=== PATIENT | female | born 1945 | race Caucasian/White ===

== ENCOUNTER → 2020-04-11 16:53 | Outpatient (CLI) | payer MEDICARE, SELFPAY | PROVIDERS: Visit Provider Specialist | DX: Z87.440 Personal history of urinary (tract) infections (principal); N95.2 Postmenopausal atrophic vaginitis; N20.0 Calculus of kidney | CPT/HCPCS: 87086; 99214 ==

== ENCOUNTER → 2020-05-17 10:58 | Outpatient (CLI) | payer MEDICARE, SELFPAY ==
[2020-05-17] MEDS: COVID-19 VACC #1, MRNA(MOD) 100 MCG/0.5 ML VIAL IM (11:07)
== END ==
PROVIDERS: Visit Provider Internal Medicine
DX: Z23 Encounter for immunization (principal)
CPT/HCPCS: 0011A; 91301

== ENCOUNTER → 2020-06-14 12:50 | Outpatient (CLI) | payer MEDICARE, SELFPAY ==
[2020-06-14] MEDS: COVID-19 VACC #2, MRNA(MOD) 100 MCG/0.5 ML VIAL IM (13:03)
== END ==
PROVIDERS: Visit Provider Internal Medicine
DX: Z23 Encounter for immunization (principal)
CPT/HCPCS: 0012A; 91301

== ENCOUNTER → 2020-12-03 11:34 | Outpatient (CLI) | payer MEDICARE, SELFPAY ==
--- NOTE | 2020-12-03 11:36 | DI.MRI.S_ITS ---
PROCEDURE: MR HIP RT WO CON INDICATIONS: PAIN IN RT HIP TECHNIQUE: Noncontrast coronal T1 spin echo and STIR through the bony pelvis. Coronal and axial T2 fast spin echo with fat saturation, sagittal T1 spin echo, and oblique axial T2 fast spin echo with fat saturation through the hip. COMPARISON: None. FINDINGS: BONES AND JOINTS: Osseous structures: No fracture identified. Sacroiliac joints: Unremarkable in signal intensity. Lower lumbar spine: Diffuse spondylosis and facet arthropathy. Joint effusion: None. Other: There are extensive geographic in curvilinear signal changes involving the right femoral head suggestive of osteonecrosis/avascular necrosis. There is borderline articular surface deformity/early collapse. TENDONS AND LIGAMENTS: Gluteus medius and minimus tendons: Intact. No muscle atrophy. Proximal iliotibial band: Intact. Iliopsoas tendon: Intact. Origin of the hamstring tendon: Mildly thickened and intrasubstance T2 hyperintensity, technically age indeterminate finding. Rectus femoris muscle origins: Intact Ligamentum teres: Intrasubstance signal changes although thought to be intact. LABRUM: Labrum: Anterosuperior labral tear with full-thickness T2/fluid signal intensity traversing the base of the labrum. There is adjacent degenerative changes seen in the acetabulum and partial thickness chondral loss. Alpha angle of the femur: Abnormal, measuring approximately 58? SOFT TISSUES: Visualized muscles: Normal bulk and internal signal. Quadratus femoris muscle: Normal. Proximal sciatic neurovascular bundle: Normal adjacent to the hamstring tendons. Other: No pelvic free fluid. Bladder: Normal. Genitourinary structures and bowel loops: Normal where visualized. IMPRESSION: Right femoral head osteonecrosis/AVN. Borderline articular surface deformity suggestive of early collapse. Continued serial radiographic surveillance recommended. Chronic anterosuperior labral tear. Increased alpha angle of the femur as above, which raises the possibility of femoral acetabular impingement syndrome although only in the appropriate clinical setting. Age-indeterminate hamstring origin tendinopathy, mild. Dictated by: Presley Ramos M.D. on 12/05/2020 at 8:51 Approved by: Presley Ramos M.D. on 12/05/2020 at 9:01
== END ==
PROVIDERS: Referring Provider Orthopaedic Surgery; Visit Provider Orthopaedic Surgery
DX: M25.551 Pain in right hip (principal); M87.851 Other osteonecrosis, right femur; S73.191A Other sprain of right hip, initial encounter
CPT/HCPCS: 73721

== ENCOUNTER → 2020-12-21 12:07 | Outpatient (CLI) | payer MEDICARE, SELFPAY ==
[2020-12-21 13:04] LABS: Add Manual Diff / Slide Review NO; Basophils Absolute Auto 0 /uL (0-100); Basophils Percent Auto 0.6 % (0-2); Eosinophils Absolute Auto 200 /uL (0-450); Eosinophils Percent Auto 2.9 % (2-4); Hemoglobin 13.7 g/dL (12.0-16.0); Lymphocytes Absolute Auto 1900 /uL (1100-4500); Lymphocytes Percent Auto 32.8 % (25-40); Mean Corpuscular HGB Conc 33.4 % (30-36); Mean Corpuscular Hemoglobin 33.1 PG (26-34); Mean Corpuscular Volume 99.3 fL (80-100); Monocytes Absolute Auto 200 /uL (0-900); Monocytes Percent Auto 4.1 % (3-14); Neutrophils Absolute Auto 3400 /uL (1500-7000); Neutrophils Percent Auto 59.6 % (50-75); Platelet Count 220 X10^3/uL (150-400); Red Blood Cell Count 4.13 X10^6/uL (4.0-5.2); Red Cell Distribution Width 13.8 % (11.6-14.8); White Blood Cell Count 5.8 X10^3/uL (4.5-11.0)
[2020-12-21 13:11] LABS: INR 1.3 (0.9-1.3); Prothrombin Time 14.4 SECONDS (10.1-12.7)
[2020-12-21 13:14] LABS: PTT Partial Thromboplastin Tim 34 SECONDS (26.4-36.2)
[2020-12-21 13:23] LABS: Hemoglobin A1C% w Est Avg Glu 4.9 % (4.0-6.0)
[2020-12-21 13:26] LABS: BUN Creatinine Ratio 32.8 (6-22); Blood Urea Nitrogen 21 mg/dL (7-17); Calcium 9.5 mg/dL (8.4-10.2); Carbon Dioxide 27 mmol/L (22-32); Chloride 105 mmol/L (98-107); Estimated Glomerular Filt Rate > 60.0 mL/min (>60); Glucose 109 mg/dL (80-110); HEMOLYSIS < 15 (0-50); Potassium 4.3 mmol/L (3.4-5.1); Sodium 138 mmol/L (137-145)
== END ==
PROVIDERS: Referring Provider Orthopaedic Surgery; Visit Provider Orthopaedic Surgery
DX: Z01.818 Encounter for other preprocedural examination; Z51.81 Encounter for therapeutic drug level monitoring; R73.9 Hyperglycemia, unspecified; Z01.812 Encounter for preprocedural laboratory examination; N39.0 Urinary tract infection, site not specified
CPT/HCPCS: 36415; 80048; 83036; 85025; 85610; 85730; 93005

== ENCOUNTER 2021-01-03 10:26 | Day surgery (SDC) | payer MEDICARE, SELFPAY ==
[2020-12-29 10:33] VITALS: BMI 21.9
[2021-01-03] VITALS (11 sets, daily range): BP systolic 96–126; BP diastolic 47–78; PULSE 67–79; RESP 13–17; TEMP 35.6–36.7; O2SAT 93–99; BMI 21.9
--- NOTE | 2021-01-03 06:33 | DI.RAD.S_ITS ---
PROCEDURE: XR HIP W PEL IF DONE RT 2V INDICATIONS: inner op TECHNIQUE: AP pelvis and lateral view of the 2 hip acquired. COMPARISON: [facility], CR, XR HIP W PEL IF DONE RT 2V, 01/03/2021, 16:27. FINDINGS: Single operative images demonstrating right hip arthroplasty which is appears in expected position. IMPRESSION: Intraoperative images during placement of right hip arthroplasty demonstrating expected positioning of the prosthetic components peers Dictated by: Abhinav Lopez RRA Interpreted: Mirna Mckinney MD on 01/03/2021 at 16:58 Transcribed by: ANDREWS on 01/03/2021 at 16:59 Approved by: Mirna Mckinney M.D. on 01/03/2021 at 20:02
[2021-01-03 11:23] LABS: COVID19 -Nasal RAPID Negative (Negative)
[2021-01-03] MEDS: VANCOMYCIN 1,000 MG/200 ML PIGGYBACK 200 MG IV (11:45)
[2021-01-03] MEDS: LACTATED RINGERS 1,000 ML 42 ML IV ×2 (11:45→15:40)
--- NOTE | 2021-01-03 11:55 | P.OP_ITS ---
Operative Date/Time/Diagnoses Date of procedure: 01/03/21 Time of procedure: 12:30 Pre-op diagnosis: Right hip osteoarthritis Post-op diagnosis: same Procedure & Clinicians Procedure: Right total hip arthroplasty anterior approach Same procedure as scheduled: Yes Indications: The patient has had progressively worsening right hip pain with radiographic changes consistent with arthritis. Non-operative management has failed and the patient has requested total hip replacement. The risks, benefits and alternatives to surgery were discussed with the patient prior to proceeding. Risks discussed included, but were not limited to, failure to relieve pain, leg length discrepancy, dislocation, stiffness, infection, nerve damage, deep venous thrombosis, pulmonary embolism, stroke, coma, heart attack, permanent paralysis and , as well as the potential need for eventual revision of the prosthetic. Surgeon: Mandie Meier Spinning Machine Operator: Uriel Angel Anesthesia Type: General and Spinal Operative Notes Findings: Severe right hip avascular necrosis, adequate bone, adequate stability Closure Type: primary Specimen(s): none sent Prosthetic devices, grafts, tissues, transplants, or devices: Meier and nephew size 6 standard offset anthology, 48 mm cup R3, neutral poly liner,0 Oxinium head,two 6.5 mm screw Estimated Blood Loss (mL): 250 Blood products transfused: none Procedure in detail: The patient was brought to the operating room. Patient was carefully positioned in the supine position. Time-out was performed and antibiotics were given. Anesthesia was induced. She was positioned in the on the table in order to allow hyperextension of the hip. The right lower extremity was prepped and draped in a standard sterile fashion. An anterior right hip incision was made 1 fingerbreadth lateral to the anterior superior iliac spine and extended distally towards the greater trochanter. Dissection was carried out through skin and subcutaneous tissues. Superficial hemostasis was achieved. The fascia over the tensor fascia nancy was defined and incised with a knife. Two Allis clamps were used to grasp the fascia. Tensor fascia nancy was retracted laterally. A gelpi retractor was placed. Dissection was carried out down along the neck. The circumflex vessels were carefully identified and cauterized with the Aqua Mantis. There was good visualization of the femoral neck. A Cobra was placed superior to the neck and the gluteus fibers were carefully stripped from that superior aspect of the capsule. A 2nd retractor was placed along the inferior aspect of the neck. The rectus insertion along the capsule was partially released. A 3rd retractor that was then gently placed over the rim of the acetabulum under the rectus. Capsule was carefully incised and released from the intertrochanteric line circumferentially superior to the mid sagittal line and inferiorly to the mid sagittal line until the lesser trochanter was palpable. A tag stitch was placed both in the superior and inferior limb of the capsular insertion. Along the acetabulum capsule was also released up to the mid sagittal 12:00 position. A portion of the labrum was resected. A saw was used to perform an osteotomy at the level of the intertrochanteric line and the junction of the superior femoral neck leaving approximately 1 finger breath of residual inferior neck above the lesser trochanter. A 2nd cut was made along the femoral neck at the base of the head and a napkin ring of neck was removed. Corkscrew was placed in the femoral head and the head was removed without difficulty. Retractors were then repositioned around the acetabulum. Residual labrum was resected and additional osteophytes were removed. A reamer that was 4 mm below the templated size was placed by hand in the acetabulum and it was reamed to centralize the acetabulum. It was then reamed up to 2 under the templated size and fluoroscopy was brought in to confirm the position of the reaming and depth of reaming. I reamed 1 under the anticipated size. A trial cup was placed and noted that it was appropriately sized and fluoroscopy confirmed position and depth. The component was open and inserted without difficulty fluoroscopic imaging was used to confirm that the cup had been adequately seated and was well positioned. It was further stabilized with a two screws. Neutral poly liner was placed. The cup was tested and noted to be stable. Attention was then directed to the femur. The femur was gently hyperextended additional capsular release was performed as needed in order to allow adequate visualization of the proximal femur with elevation of the femur. Patient was placed in a hyperextended slightly adducted position with maximum external rotation. Box osteotome was used to check for any residual neck as well as sclerotic bone along the trochanter. Gallaway pepper was placed in the femur. Additional broaching was performed. Canal finder was used to determine the alignment of the canal and position. Size 1 broach was placed. The canal was then appropriately broached up to the templated size as long as there was adequate stability of the broach and serial advancement of the broach without excessive impingement. Specific attention was directed at avoiding varus attempting to direct the distal aspect of the broach more anteriorly and avoiding excessive anteversion. Trial reduction showed acceptable range of motio n, good stability, no posterior impingement, pentecostal of leg length and appropriate lateral shuck. I also hyperflexed the hip and checked that there was no impingement anteriorly and there was good stability with flexion, adduction and internal rotation. Marcaine and Exparel were injected. The stem was placed without difficulty. Repeat trial reduction and x-ray showed acceptable overall position, length, and no evidence of the femoral fracture. Final head was placed. Wound was meticulously irrigated with normal saline. The hip was reduced and additional Exparel and Marcaine were injected. The capsule was closed with interrupted nonabsorbable sutures. The fascia of the tensor was closed with interrupted and running Vicryl. No drain was placed. Any tensor fascia nancy muscle that appeared to be contused or injured which was a minimal amount was carefully resected. Capsule around the tensor was injected with Exparel and Marcaine. The skin was closed with barbed stitches for the peoples bcutaneous tissue and skin. We also used surgical glue. The wound was dressed sterilely. Brief Betadine soak was also used and was meticulously irrigated with normal saline. Patient was transferred to recovery room in satisfactory condition. Complications: none Post-operative Condition: stable Disposition: Acute Care Plan for aftercare: The patient will be maintained on a standard total hip replacement protocol with weight bearing as tolerated and anterior hip precautions. The patient will receive Aspirin and sequential compression devices for DVT prophylaxis. The patient will be discharged home when safe for the home environment.
--- NOTE | 2021-01-03 11:55 | PM.PREOP ---
Pre-operative Note COVID-19 COVID-19 status: Negative Interval Note History & Physical reviewed/Exam performed by Physician: Yes Changes to H&P: No
[2021-01-03] MEDS: CEFAZOLIN 1 GM VIAL IV (13:08)
[2021-01-03] MEDS: TRANEXAMIC ACID 1,000 MG VIAL 1000 MG INJ ×2 (13:08→15:26)
--- NOTE | 2021-01-03 13:15 | DI.RAD.S_ITS ---
PROCEDURE: XR HIP W PEL IF DONE RT 2V INDICATIONS: RT ANT TOTAL HIT TECHNIQUE: AP pelvis and lateral view of the right hip acquired. COMPARISON: [facility], CR, XR HIP W PEL IF DONE RT 2V, 01/03/2021, 14:26. FINDINGS: Bones: Patient is status post right hip arthroplasty, with hardware components in expected positions. The hip joint appears congruent. The visualized bony structures appear intact. Soft tissues: Overlying postoperative changes are noted. No suspicious soft tissue densities. IMPRESSION: Expected immediate postoperative appearance of right hip arthroplasty. Dictated by: Abhinav Lopez [facility] Interpreted: Mirna Mckinney MD on 01/03/2021 at 16:59 Transcribed by: ANDREWS on 01/03/2021 at 17:00 Approved by: Mirna Mckinney M.D. on 01/03/2021 at 20:02
--- NOTE | 2021-01-03 13:47 | SUR.OPER ---
Supine on padded Geyser table with bilateral legs secured in padded positioning boots and suspended in positioning spars, operative leg in traction per surgeon. Head on one pillow. Arm on non-operative side secured on padded armboard <90 degrees abduction. Arm on operative side padded and resting across chest then secured with tape over sheet. Padded perineal post in place per surgeon.
[2021-01-03] MEDS: BUPIVACAINE 0.25% (PF) VIAL 30 ML INJ (14:06)
[2021-01-03] MEDS: BUPIVACAINE LIPOSOME 266 MG/20 ML VIAL INJ (14:07)
[2021-01-03] MEDS: EPINEPHrine 1 MG/ML SUBCUT (14:08)
[2021-01-03] MEDS: ACETAMINOPHEN IV 1,000 MG/100 ML VIAL 400 MG IV (15:55)
--- NOTE | 2021-01-03 17:04 | SUR.PHASEI ---
Normal PACU stay, transferred to room with belongings and left unit in stable condition. Sancho assumed care, bed down, low and locked. Call phan with pt.
[2021-01-03] MEDS: NAPROXEN SODIUM 220 MG 1 EACH PO (17:30)
[2021-01-03] MEDS: LACTATED RINGERS 1,000 ML 125 ML IV (17:44)
[2021-01-03] MEDS: polyethylene glycoL 3350 17 GM POWD.PACK PO (18:54)
--- NOTE | 2021-01-03 20:46 | PC.NURSE ---
Addendum entered by Betzy Loya R.N. 01/03/21 22:17: late note: pt also refused her dinner. pt reports she has been on liquid diet at home Addendum entered by Betzy Loya R.N. 01/03/21 22:02: [place] [facility] refused to have two people helping her. pt thinks she can do it on her own. pt has not been evaluated by PT yet. pt doesn't like the gait belt, so I placed it around her very loosely, but still insist it is too tight. Original Note: pt [place] [facility] and refused to use a walker. pt voided. pt hesitant to take hospital medications. pt refused naproxen and wanted to take OTC aleve, ok per provider. 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
[2021-01-03] MEDS: DOCUSATE 100 MG CAPSULE PO (21:32)
[2021-01-03] MEDS: ASPIRIN EC 81 MG TABLET PO (21:32)
[2021-01-03] MEDS: CLINDAMYCIN 900 MG/50 ML PIGGYBACK 50 MG IV (21:37)
[2021-01-04] MEDS: NAPROXEN SODIUM 220 MG 1 EACH PO ×2 (01:24→08:51)
--- NOTE | 2021-01-04 03:14 | PC.NURSE ---
Addendum entered by Luh Christianson R.N. 01/04/21 06:27: Patient refused blood draw this morning. This RN explained why the blood was needed, however, the patient stated she would like to speak with Dr. Meier about it and does not feel that it is necessary. Will notify oncoming RN. Original Note: Patient refused next bag of LR to be hung when this RN went to hang it at 0240. Patient agreed to increase intake and has voided multiple times this shift. Patients IV was DC'd at 0245. Will monitor output throughout shift.
[2021-01-04 05:12] VITALS: BP 134/69; PULSE 72; RESP 18; TEMP 36.2; O2SAT 96
--- NOTE | 2021-01-04 07:29 | PM.DS.1 ---
History of Present Illness History of Present Illness Date Patient Seen: 01/04/21 Time Patient Seen: 07:29 Chief complaint: Right Total Hip Arthroplasty/Anterior *OPB* Narrative: The patient is complaining of mild right hip pain this morning, which is well controlled with her current pain regimen. She is only using Aleve as she is unable to tolerate any other pain medications. She also refused her blood draw this morning. She was scheduled for an H&H, she is asymptomatic with sitting or standing-no dizziness or lightheadedness. She denies numbness or tingling, fevers/chills/night sweats, nausea or vomiting. She is working with physical therapy. She refused to use her walker during physical therapy. Overall she is feeling well, and would like to go home today. Discharge Providers Provider Discharge Date: 01/04/21 Primary care physician: Doctor Ori MD Consults: 01/03/21 06:33 Consult to Anesthesiology Routine Comment: Consulting Provider: Anesthesiologist Reason for consultation: Regional block for post operative pain control 01/03/21 16:48 Consult to Discharge Planning Routine Comment: Consult to Physical Therapy Evaluate & Treat Comment: Physician Instructions: post op FRANCINE protocol Consult to Respiratory Therapy Evaluate & Treat Comment: Physician Instructions: Evaluate and treat Discharge provider: Renita Loya PA-C Summary Hospital Course Discharge Diagnosis: Right hip osteoarthritis Hospital Course: Procedure: Right total hip arthroplasty anterior approach Same procedure as scheduled: Yes Indications: The patient has had progressively worsening right hip pain with radiographic changes consistent with arthritis. Non-operative management has failed and the patient has requested total hip replacement. The risks, benefits and alternatives to surgery were discussed with the patient prior to proceeding. Risks discussed included, but were not limited to, failure to relieve pain, leg length discrepancy, dislocation, stiffness, infection, nerve damage, deep venous thrombosis, pulmonary embolism, stroke, coma, heart attack, permanent paralysis and , as well as the potential need for eventual revision of the prosthetic. Surgeon: Mandie Meier Ic Designer Standard Cells: Uriel Angel Anesthesia Type: General and Spinal Operative Notes Findings: Severe right hip avascular necrosis, adequate bone, adequate stability Closure Type: primary Specimen(s): none sent Prosthetic devices, grafts, tissues, transplants, or devices: Meier and nephew size 6 standard offset anthology, 48 mm cup R3, neutral poly liner,0 Oxinium head,two 6.5 mm screw Estimated Blood Loss (mL): 250 Blood products transfused: none Status at Discharge Cognitive/behavioral status at discharge: oriented Functional status at discharge: uses cane/walker Overall status at discharge: patient is progressing back to baseline Exam Vital Signs (past 8 hours): - 01/03/21 23:35 01/04/21 05:12 Temperature 97.5 F L 97.2 F L Pulse Rate 79 72 Respiratory Rate 16 18 Blood Pressure 126/74 134/69 Pulse Oximetry 98 96 Oxygen Delivery Method Room Air Oxygen Flow Rate 0 Narrative Exam Narrative: 75-year-old female, resting comfortably in bed, no acute distress. Incision is clean, dry, intact. Bilateral lower extremities with normal motor functions. Sensation to is grossly intact to light touch in bilateral lower extremities. Both legs are warm and dry. Bilateral calves are soft, nontender to palpation. Objective Labs Labs: Laboratory Results - last 24 hr 01/02/21 10:20 SARS-CoV-2 (PCR) Negative PFSH Medical History Arthritis Asthma Chronic UTI Degenerative joint disease of knee Depression Depression Dermatitis Family history of breast cancer Fibromyalgia History of recurrent UTI (urinary tract infection) Inflammatory bowel disease Kidney stone Neuropathy Osteoarthritis Osteoporosis Postmenopausal atrophic vaginitis Right kidney stone Seasonal allergies Surgical History History of surgery Hx of bilateral cataract extraction Hx of cholecystectomy Hx of dilation and curettage Hx of tonsillectomy Previous back surgery Total knee replacement status Family History Father Cancer Mother Alzheimer's dementia Sister Hearing impairment Cancer Social History marital status: household members: none occupational status: previously employed Smoking Status: Former smoker Tobacco: How many years used: 14 alcohol intake: former caffeine: No Discharge Assessment & Plan Assessment and Plan Assessment: Stable status post right anterior total hip arthroplasty Plan of Treatment: -DC home today after cleared by PT -aspirin 81 mg b.i.d. x6 weeks for DVT prophylaxis -mobilize with PT, encourage use of front wheeled walker for safety -patient is refusing lab draws this morning for H&H. She is asymptomatic with sitting or standing, therefore okay to hold on labs Discharge Plan Discharge Plan Patient Disposition: Home Discharge orders & Medications Discharge Orders: Discharge (Order); Ordered 01/04/21 Ordered By: Renita Loya Prescriptions: New aspirin 81 mg Tablet,Delayed Release (Dr/Ec) 81 mg PO BID PRN (Reason: x6 weeks to prevent blood clots) Qty: 90 RF: 0 Continued Probiotic 3 billion cell capsule 3,000 mmu cells PO DAILY RF: 0 d-mannose Powder 500 ea PO RF: 0 Bacillus coagulans PO RF: 0 instaflex capsule 1 PO BID RF: 0 docusate sodium PO RF: 0 flaxseed oil 1,000 mg capsule 1,000 mg PO DAILY RF: 0 Osphena 60 mg tablet 60 mg PO DAILY Qty: 90 RF: 3 Follow up/Referrals: Doctor Rehman MD [Primary Care Provider] - Mandie Meier MD [Physician] - (10-14 days for postoperative visit) Diet/Activity/Treatments Diet: Diet as Tolerated and Regular Activity: -weightbearing as tolerated with front wheeled walker -maintain anterior hip precautions -continue with home exercises, as directed by Physical therapy Cold/Heat Therapy: -Use ice as needed for pain control, protect skin from direct contact with ice with folded pillow case Other treatments: -81 mg of aspirin twice daily x6 weeks to prevent blood clots Skin/Wound/Dressing Care Report to your healthcare provider any signs of infection, such as:: chills, fever, night sweats, unusual drainage and unusual redness Dressing: -keep incision covered with dressing. -call the office if dressing becomes wet, saturated, salt Visit Report/Discharge Packet Instructions: DI for Hip Replacement Stand Alone Forms: Surgery Discharge Discharge Data Primary Care Provider: Doctor Ori Attending Provider: Mandie Meier
[2021-01-04 08:26] VITALS: BP 163/68; PULSE 74; RESP 16; TEMP 36.3
[2021-01-04] MEDS: ASPIRIN EC 81 MG TABLET PO (08:51)
[2021-01-04] MEDS: DOCUSATE 100 MG CAPSULE PO (08:51)
--- NOTE | 2021-01-04 08:55 | PT.IIE ---
Current Diagnoses Bilateral primary osteoarthritis of hip (01/03/21) Idiopathic aseptic necrosis of right femur (01/03/21) Surgery Performed Operation Date: 01/03/21 12:15 Actual Procedures p Total Hip Arthroplasty/Anterior Approach(Right) - Mandie Meier MD Medical History (Last Reviewed 01/04/21 @ 07:32 by Renita Loya PA-C) Arthritis Asthma Chronic UTI Degenerative joint disease of knee Depression Depression Dermatitis Family history of breast cancer Fibromyalgia History of recurrent UTI (urinary tract infection) Inflammatory bowel disease Kidney stone Neuropathy Osteoarthritis Osteoporosis Postmenopausal atrophic vaginitis Right kidney stone Seasonal allergies Physical Therapy Inpatient Evaluation/Re-Eval M1 PT/OT-IP Prior Functional Status Start: 01/04/21 10:10 Freq: NEEDED Status: Active Protocol: Document 01/04/21 08:55 AB (Rec: 01/04/21 10:24 AB [email or web address]) Medical Review Prior Functional Status Medical History Reviewed Yes Communication able to make needs known Mobility and Gait pt stated that she is independent with all mobilities and ambulation without AD Social History Household Members none Living Arrangements House Number of Floors (Floors) One Floor Number of Stairs To Enter/Railing? 1 step to enter Home Environment High Toilet,Walk in Shower Home Equipment Four Wheel Walker,Shower Seat with Backrest,Grab Bars In Shower M2 PT-IP Current Condition Start: 01/04/21 10:10 Freq: NEEDED Status: Active Protocol: Document 01/04/21 08:55 AB (Rec: 01/04/21 10:24 AB [email or web address]) Physical Therapy Current Condition Current Condition Evaluation Date 01/04/21 Treatment Diagnosis s/p R FRANCINE anterior approach; difficulty in walking Onset Date 01/03/21 Precautions Anterior Hip Precautions No Hip Extension,No Hip External Rotation Weight Bearing Status Weight Bearing Status Weight Bear as Tolerated Allowed Weight Bearing Amount (enter % RLE WBAT or #) (%) M3 PT-IP Subjective Start: 01/04/21 10:10 Freq: NEEDED Status: Active Protocol: Document 01/04/21 08:55 AB (Rec: 01/04/21 10:24 AB [email or web address]) Subjective Physical Therapy Visit Type Type Initial Evaluation Visit Start Time 08:55 Visit Stop Time 09:41 Total Visit Minutes 46 Number of LEARNING DISABILITIES SPECIALIST Visits 0 Physical Therapy Visit Comments Patient Comments pt is agreeable to do PT Therapy Pain Assessment Pain When Pain Assessed At Rest Pain Present Pain Present Pain Reported Location right hip Intensity 3 Scale Used Numeric (0 - 10) Pain Management Techniques Distraction,Modification of Treatment,Re-positioning, Timing of Activity with Medications M4 PT-IP Mobility and Gait Start: 01/04/21 10:10 Freq: NEEDED Status: Active Protocol: Document 01/04/21 08:55 AB (Rec: 01/04/21 10:24 AB [id number]) PT-Bed Mobility Assessment Supine to Sit Supine to Sit Independent Sit to Supine Sit to Supine Independent PT-Transfer Assessment Sit to and From Stand Sit to and from Stand Standby Assistance Equipment Transfer Assistive Device 4 Wheeled Walker Orthotic/Prosthetic Devices or Brace: No Transfers Transfer Destination Bed,Chair Transfer Technique Stand Step Pivot Transfer Ability Level of Assist Standby Assistance,Use of Upper Extremities Comments Mobility Comments educated pt on hip precautions . pt is able to recall. pt completed sit to stand from chair SBA and transferred to bed using 4WW SBA. educated on use of 4WW/brakes. pt refuse to use FWW. pt directs her own care. completed bed mobility sit<>supine mod I. ambulated in the hallway using 4WW sBA and occasional cues for hip precautions. pt initially refuses safety belt on but agreed after education. stair climbing training: pt stated that she holds on to the door know for support and does not want to use 4WW. completed up platform step holding on to sides of door SBA. 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 educated pt on safety and stated that her friend will be able to assist her but friend cannot come for training and will only pick her up. pt stated that she is going to have HHPT. pt ambualted back to the chair using 4WW SBA. call light and table placed within reach. informed NAC that pt needs assistance to get ready for d/ c home. Gait Assessment Gait Gait Assistance Required: Standby Assistance Distance (Feet) 75 Able to Maintain Weight Bearing Status Yes During Gait Assistive Devices Assistive Device 4 Wheeled Walker Orthotic/Prosthetic Devices or Brace: No Gait Deviations General Gait Pattern Antalgic,Decreased Stride Length,Decreased Feet Clearance,Step-to Gait Factors Limiting Gait Function Factors Limiting Gait Function Decreased Activity Tolerance, Decreased Strength,Limited Range of Motion,Pain,Poor Balance,Poor Safety Awareness Stair Climbing Assessment Evaluation Level of Assist On Stairs Standby Assistance,Contact Guard Assistance,1 Person Assistance Technique/Endurance Stair Climbing Direction Ascend and Descend Stair Climbing Technique Step to Step Number of Steps Climbed 1 Query Text: Stair Climbing Set # Repetitions (reps) 1 Comments Stair Climbing Comments pls refer to mobility section for details PT-Balance Assessment Sitting Balance and Reactions Static Sitting Balance Ability Normal Dynamic Sitting Balance Ability Good Standing Balance and Reactions Static Standing Balance Ability Fair Dynamic Standing Balance Ability Fair Device Used 4WW M5 PT-IP Objective Assessments Start: 01/04/21 10:10 Freq: NEEDED Status: Active Protocol: Document 01/04/21 08:55 AB (Rec: 01/04/21 10:24 [email or web address]) Orientation Orientation/Cognition Level of Alertness Alert Orientation Name,Age,Birthday,Month,Date, Year,Day of Week,Place, Situation Safety Awareness Decreased Safety Awareness Memory Description Short Term Impaired Gross Range of Motion Lower Extremity ROM Assessment Within Functional Limits Strength Lower Extremity Strength Assessment Right Impaired Hip 3+/5 Knee 4-/5 Coordination Assessment Gross Coordination Gross Coordination WNL Sensation Assessment Sensation Gross Sensation WNL Muscle Tone Muscle Tone WNL Yes M6 PT-IP Treatment Start: 01/04/21 10:10 Freq: NEEDED Status: Active Protocol: Document 01/04/21 08:55 AB (Rec: 01/04/21 10:24 [email or web address]) Physical Therapy Treatment Education Education Provided Precautions,Weight Bearing Status,Post-Op Packet,Safety M7 PT-IP Assessment and Plan Start: 01/04/21 10:10 Freq: NEEDED Status: Active Protocol: Document 01/04/21 08:55 AB (Rec: 01/04/21 10:24 [email or web address]) PT Summary Assessment and Plan Potential Rehabilitation Potential Good Status of Condition at Evaluation Stable Summary Impairments Pain,ROM,Strength,Balance, Coordination,Sensation,Tone, Cognition,Bed Mobility, Transfers,Gait,Activity Tolerance Assessment Summary pt requiring SBA with mobility using 4WW. pt lives alone and will have friends that can assist if needed but pt stated that she does not need assistance. pt also said that she is going to have HHPT. pt may go home when medically stable. Goals Bed Mobility Goal Independent Transfer Goal Independent,Four Wheeled Walker Gait Goal Independent,Four Wheel Walker Gait Distance 200 Other Goals up/down 1 step mod I Days to Meet Goals 3 Frequency of Treatment Frequency Of Treatment Twice a Day Treatment Plan Physical Therapy Treatment Plan Bed Mobility Training,Transfer Training,Gait Training, Therapeutic Exercise,Balance Retraining,Post Op Education, Discharge Planning,Hot or Cold Pack,Neuromuscular Re-ed, Coordination Retraining,Manual Therapy Precautions Anterior Hip Precautions No Hip Extension,No Hip External Rotation Other Precautions WBAT RLE Recommendations To Nursing Amount of Assist Needed Standby Assistance Discharge Recommendations PT Discharge Recommendations Home with Assistance,Home Health Transportation Needs at Discharge Private Vehicle
--- NOTE | 2021-01-04 10:11 | CM.DANOTE ---
Addendum entered by Arabella Salomon R.N. 01/04/21 12:22: Met with patient again. Asked patient about any home health services, if she felt she needed it. She indicated, maybe at some point, but I need to have the cleaning people come over and move somethings before I can consider someone coming to the house. She indicated, she uses [facility], and they had not shown up, and was going to contact them. Asked her about her , since face sheet indicates that she is . She stated, they are , he lives in [place], but they keep in contact. She has no children, but nieces and nephews. She is awaiting her friend picking her up after work, will be at approximately 1500. Original Note: DCP: Case received, EMR reviewed and met with patient. Introduced self and role. Was able to obtain information regarding patient's baseline activity status prior to surgery, as well as her current living home situation. DCP assessment completed with information currently available. Patient is a 75 year old female who admitted yesterday morning to the care of the orthopedic team. PCP: Dr. Diamond Payer: confirmed: Medicare/[employer]ARP. Patient came to the hospital via private vehicle for a surgical procedure. She had right total hip arthroplasty. Patient has history of osteoarthritis of her right hip, and she has had some chronic pain. Met with patient in her room. She is alert and oriented, pleasant. She resides in [place] alone. Patient does have a four wheel walker, but indicated, it's heavy to take places. She indicated, she uses furniture at home to hold on to. She indicated that she does drive. She mentioned that her friend, Sabi Munoz, will be assisting her when she goes home, and is picking her up. Her friend does work, however. Patient mentioned that she does not want to take narcotics for pain, just her anti-inflammatories. Patient indicated, she likes to take the holisic approach. She will be working with physical therapy today. She also stated that her home is small and open, not a lot of square footage, is easy to get around. P: Patient has discharge orders for home today. She will be working with Roel Salomon RN/Right Of Way Man
--- NOTE | 2021-01-04 14:14 | PT-IP ANOTE ---
~1345: Nurse informed PT that pt has a question regarding her 4WW. Went in to see pt. pt stated that her walker still moves even when she has the breaks on. informed pt that the 4WW will still move when she pushes it hard enough since it is a portable device and it is not bolted on the floor. stated that it does not do that before and this morning when she used it. checked pt's 4WW and seems like the wheels are worn out and informed pt. pt stated , why will it be worn out where in she just used it for 1 week after her knee surgery. I asked the pt how long ago did she get the walker and stated 10 years ago and was sitting in her garage. pt stated that is is an $800 walker and she cannot use it now and that she will just let her friend take it down to the car and she will throw it back to the garage. This PT asked the pt to walk with the 4WW and ambulated but pt kept pushing the walker forward with brakes on and stated that it does not work. asked the pt to sit down. I got our in house 4WW with the brakes working and showed pt that even if the brakes are working, if you push enough, the walker will still move. pt stated, not my walker before. informed pt that she needs to call the vendor where she got the walker to fix it since this PT is not going to be able to fix it . Pt stated, that she cannot bring it to where she got it from and that there are 3 nurses that says that PT will be able to fix it. Informed pt that this PT is not a station mechanic helper and cannot fix it. PT can try to improvised to make the wheels not turn much until she gets it fix. Pt stated, that that will not work. Informed pt to just give it a try and see how she feels about it. This PT put in sticky velcro around brake wheel lock to buffer wheel movement when brakes are on for better rand tacker. Wheels does not move when brakes are on with velcros on. pt attempted to walk with 4WW again and pt kept pushing the walking with brakes on and stated that it will not work. stated that she has been using the 4WW for 1 month prior to surgery and was not moving when she used it then. So, pt asked PT again, why is it moving now. Again, PT explained but pt does not accept explanation. Informed pt that even with a 4WW with fully working brakes, it will move if you push it enough. pt kept saying, not her walker. Asked pt if she wants PT to take the velcros off and pt stated no and to leave them on. pt then given options since nothing will work for pt. asked pt if she wants to use a FWW and refused, informed pt to use a SPC at least and refused. Saying that she has a balance problems and will not use a SPC. Informed pt to just be careful at home. Seems like nothing will be sufficient for pt and no education and amount of explanation will be acceptable to pt. Nurse present in room towards end of pt visit. Nurse stated that she also explained to pt earlier that the 4WW will move when you push enough on it even with the brakes on. informed major case detective regarding encounter.
== END 2021-01-04 15:30 | disposition home or self-care (01) ==
LOC: OR 10:29 → AC 10:30
PROVIDERS: Referring Provider Orthopaedic Surgery; Visit Provider Orthopaedic Surgery
PROC: (CPT 27130; principal; 2021-01-03 12:15)
DX: M16.11 Unilateral primary osteoarthritis, right hip (principal); M87.851 Other osteonecrosis, right femur; J45.909 Unspecified asthma, uncomplicated; F32.9 Major depressive disorder, single episode, unspecified; M79.7 Fibromyalgia; Z20.822 Contact with and (suspected) exposure to COVID-19
CPT/HCPCS: 27130; 73502; 76000; 87635; 97161; 97530; C1776; C9290; J0131; J0171; J0690; J1100; J2405; J2704; J3010